=== PATIENT | female | born 1955 | race Caucasian/White ===

== ENCOUNTER 2024-01-29 18:05 | Emergency (ER) | payer MEDICARE ==
[~2024-01-29] VITALS: Ht 162.6 cm; Wt 68.2 kg
[2024-01-29 18:20] VITALS: BP 174/78; PULSE 64; TEMP 97.2; O2SAT 100
[2024-01-29 19:10] LABS: BILIRUBIN,URINE NEGATIVE (Neg); CLARITY,URINE CLEAR (Clear); COLOR,URINE YELLOW (Yellow); GLUCOSE, URINE NEGATIVE (Neg); KETONES,URINE NEGATIVE (Neg); LEUKOCYTE ESTERASE ,URINE SMALL (Neg); NITRITES, URINE NEGATIVE (Neg); OCCULT BLOOD,URINE LARGE (Neg); PH,URINE 5.5 (4.8-8.0); PROTEIN,URINE TRACE mg/dl (Neg); UROBILINOGEN,URINE 0.2 E.U/dL (0.2-1.0)
[2024-01-29 19:11] LABS: UA COLLECTION TYPE CLN CATCH MIDSTREAM
[2024-01-29] MEDS: CefTRIAXone 1000mg IM Kit (w/lidocaine diluent) IM ONE (19:12)
[2024-01-29 19:19] LABS: BACTERIA,URINE 1+ /HPF (Neg); MUCUS STRANDS NONE SEEN /LPF (Neg); SQUAMOUS EPITHELIAL CELL,UR FEW /LPF (FEW)
[2024-01-29] MEDS ORDERED: PHEN-786 PO (19:37)
[2024-01-29] MEDS ORDERED: CEFP100T7 PO (19:38)
[2024-01-29 19:43] VITALS: RESP 17
== END 2024-01-29 19:44 | disposition home or self-care (01) ==
LOC: ER 18:06
DX: N39.0 Urinary tract infection, site not specified (principal); Z79.2 Long term (current) use of antibiotics
CPT/HCPCS: 81001; 87077; 87088; 87186; 96372; 99283; J0696